=== PATIENT | female | born 1975 | race Caucasian/White ===

== ENCOUNTER 2016-05-15 08:57 | Day surgery (SDC) | payer MEDICAID ==
[2016-05-15] MEDS ORDERED: ANCEF/STERILE WATER 2 GM/20 ML IV NR (09:00)
[2016-05-15] MEDS ORDERED: PERCOCET 5/325 PO PRN (10:13)
[2016-05-15] MEDS ORDERED: DILAUDID IV PRN (10:13)
--- NOTE | 2016-05-15 10:14 | Anesthesia Day of Surgery ---
Anesthesia Day of Surgery - Day of Surgery Patient Examined: Yes Patient H&P Reviewed: Yes Patient is NPO: Yes
--- NOTE | 2016-05-15 10:14 | Anesthesia Consultation ---
Anesthesia Consult and Med Hx Date of service: 05/15/16 - Airway Anesthetic Teeth Evaluation: Good ROM Head & Neck: Adequate Mental/Hyoid Distance: Adequate Mallampati Class: Class II Intubation Access Assessment: Probably Good - Pulmonary Exam CTA: Yes - Cardiac Exam Cardiac Exam: RRR - Pre-Operative Health Status ASA Pre-Surgery Classification: ASA1 Proposed Anesthetic Plan: General - Pulmonary Hx Smoking: No - Cardiovascular System Hx Hypertension: No - Endocrine Hx Non-Insulin Dependent Diabetes: No
[2016-05-15] MEDS ORDERED: SUBLIMAZE ONE (10:44)
[2016-05-15] MEDS ORDERED: XYLOCAINE MPF 2% ONE (10:44)
[2016-05-15] MEDS ORDERED: DIPRIVAN 10 MG/ML IV ONE (10:45)
[2016-05-15] MEDS ORDERED: NACL 0.9% 1000 ML 1,000 ML IV SCH (11:00)
[2016-05-15] MEDS ORDERED: PEPCID PO NR (11:00)
[2016-05-15] MEDS ORDERED: VERSED IV NR (11:00)
--- NOTE | 2016-05-15 11:07 | Post Operative Note ---
Pre-op diagnosis: r distal stone Post-op diagnosis: other (perineal and vag lesions) Findings: see op note Procedure: cysto rpg r uereroscopy excisinal bx lesion Anesthesia: GETA Surgeon: MAXIME NOBLES Estimated blood loss: none Condition: stable Disposition: PACU
--- NOTE | 2016-05-15 11:08 | Discharge Summary ---
Short Stay Discharge Plan Activity: other (no straining ) Weight Bearing Status: Full Weight Bearing Diet: regular, low fat, low cholesterol Special Instructions: other (inc fluids )
[2016-05-15] MEDS ORDERED: DECADRON ONE (11:36)
[2016-05-15] MEDS ORDERED: ZOFRAN ONE (11:36)
[2016-05-15] MEDS ORDERED: OMNIPAQUE 300 MG/50 ML (CATH LAB) IV ONE (11:40)
[2016-05-15] MEDS ORDERED: WATER FOR IRRIG STERILE IR ONE (11:44)
[2016-05-15] MEDS ORDERED: DEMEROL ONE (12:33)
--- NOTE | 2016-05-15 12:50 | Post Anesthesia Evaluation ---
- Post Anesthesia Evaluation Patient Participated: Yes Airway Patent: Yes Stable Respiratory Function: Yes Nausea/Vomiting: No Temp > 96.8F: Yes Pain Manageable: Yes Adequeate Hydration: Yes Anesthesia Complications: No Block Receding Appropriately: Not Applicable Patient on Ventilator: No
[2016-05-15] MEDS ORDERED: DEMEROL IV PRN (12:58)
--- NOTE | 2016-05-15 14:50 | Fluoroscopy Report ---
RIGHT RETROGRADE UROGRAM: FINDINGS: The coating inspector film reveals no definite calcifications regional to the tract. The right pyelocaliceal system appears mildly dilated. The right ureter appears normal. Ureteroscopy with balloon dilatation of the ureter was performed and a ureteral stent was left in place at the termination of this procedure.
[2016-05-15 16:14] VITALS: BP 145/80
--- NOTE | 2016-05-16 07:04 | Operative Report ---
POSTOPERATIVE DIAGNOSES: Right ureteral stone, hydronephrosis. POSTOPERATIVE DIAGNOSES: Significant edema around the right orifice, likely passed a small stone with perineal and paravaginal lesions. PROCEDURE: Cystoscopy, right retrograde, right ureteral balloon dilatation, ureteroscopy, double-J stent and excision of perineal lesion. SURGEON: Alex Hernández MD ANESTHESIA: General. FINDINGS: This is a woman who presented with severe flank pain. She has difficulty with some nausea and pain. She now presents for treatment. All risks and complications were discussed. DESCRIPTION OF PROCEDURE: The patient was brought to the operating room and placed on the operating table. Following induction of anesthesia, placed in lithotomy position, prepped and draped in usual sterile fashion. Immediately, we noticed labial lesions and perineal lesions. A retrograde showed a slightly narrowed lower ureter, but no significant hydronephrosis anymore. There was edema at the orifice and little blood right at the orifice. Retrograde did not show distinct stone. A Glidewire coiled in the kidney and we balloon dilated the orifice. It looked like there was some gravel that came out after the balloon was deflated. At this point, low ureteroscopy showed no distinct stones. This was irrigated. A retrograde and double-J stent coiled in the lower pole. We left the string. Because of these lesions and because of the risk if this should be condylomata, which it looks to be of cervical cancer, we did a small biopsy, the area was suture ligated with 3-0 chromic and a small area was excised. We will await the final pathology. The patient tolerated the procedure well and brought to recovery room in stable condition. Family notified. JOB# [id number] TIMMY/KATIUSKA
== END 2016-05-15 16:05 | disposition home or self-care (01) ==
LOC: OR 08:57 → EDSEX 08:57 → OR 16:05
PROVIDERS: ATTEND Urology
DX: N13.5 Crossing vessel and stricture of ureter without hydronephrosis (principal); A63.0 Anogenital (venereal) warts; N28.89 Other specified disorders of kidney and ureter; Z85.41 Personal history of malignant neoplasm of cervix uteri
CPT/HCPCS: 11421; 52332; 52341; 74420; 88305; A4217; C1726; C1758; C1769; C2617; J0690; J1100; J2175; J2250; J2405; J2704; J3010; J7030; Q9967

== ENCOUNTER 2016-10-27 11:33 | Outpatient (CLI) | payer MEDICAID ==
--- NOTE | 2016-10-27 13:31 | Ultrasound Report ---
Renal ultrasound: History: Renal calculi. The right renal length is 10.3 cm and the left renal length is 10.1 cm. Both kidneys appear to have somewhat thin parenchyma. In the mid to lower anterior right kidney there is a 15 mm circumscribed lucency containing a linear echodensity. No shadowing noted. No hydronephrosis. On one image of the superior left kidney there is a linear density with no shadowing. The echo pattern is otherwise remarkable. Imaging of the urinary bladder is normal. Impression: Right renal cyst with partial septum. Generally than renal parenchyma suggesting chronic renal disease. Possible superior pole calculus on the left.
== END 2016-10-27 11:34 | disposition home or self-care (01) ==
LOC: US 11:33
PROVIDERS: ATTEND Urology
DX: N28.1 Cyst of kidney, acquired (principal); Z87.442 Personal history of urinary calculi
CPT/HCPCS: 76770